=== PATIENT | female | born 1960 | race Caucasian/White ===

== ENCOUNTER → 2024-05-25 13:06 | Outpatient (REF) | payer OTHER, SELFPAY | LOC: HWWDC 13:06 | PROVIDERS: ATTENDING PHYSICIAN Internal Medicine | DX: Z12.31 Encounter for screening mammogram for malignant neoplasm of breast (principal) | CPT/HCPCS: 77063; 77067 ==

== ENCOUNTER → 2024-06-08 10:26 | Outpatient (REF) | payer OTHER, SELFPAY | LOC: WDC 10:26 | PROVIDERS: ATTENDING PHYSICIAN Internal Medicine | DX: R92.8 Other abnormal and inconclusive findings on diagnostic imaging of breast (principal) | CPT/HCPCS: 76642 ==

== ENCOUNTER → 2024-08-03 14:33 | Outpatient (REF) | payer OTHER, SELFPAY | LOC: DHSLP 14:33 | PROVIDERS: ATTENDING PHYSICIAN Nurse Practitioner Family | DX: G47.33 Obstructive sleep apnea (adult) (pediatric) (principal); R09.02 Hypoxemia | CPT/HCPCS: 95800 ==

== ENCOUNTER → 2024-12-12 14:22 | Outpatient (REF) | payer OTHER, SELFPAY | LOC: WDC 14:22 | PROVIDERS: ATTENDING PHYSICIAN Internal Medicine | DX: R92.8 Other abnormal and inconclusive findings on diagnostic imaging of breast (principal) | CPT/HCPCS: 76642 ==

== ENCOUNTER 2025-01-04 06:29 | Day surgery (SDC) | payer OTHER, SELFPAY ==
[2025-01-04] VITALS (9 sets, daily range): BP systolic 95–123; BP diastolic 37–75; BMI 45.9
[2025-01-04] MEDS: TYLENOL 1000 MG PO (11:11)
[2025-01-04] MEDS: NORMOSOL-R/PLASMALYTE-A 1000 IV (11:23)
[2025-01-04] MEDS: IC GREEN 2.5 MG IV (11:52)
--- NOTE | 2025-01-04 14:05 | W.SUR.PREOP ---
Pre-Operative Surgical Note
-
I have examined this patient prior to the performance of the scheduled procedure.
The patient's condition is unchanged from the time of the current History and
Physical and the patient is able to undergo the scheduled procedure.
--- NOTE | 2025-01-04 14:05 | HP.FOC2 ---
Focused History & Physical
Chief Complaint
HPI:
Chief Complaint: Right upper quadrant pain
HPI / Indication for Planned Procedure: This is a 64-year-old female who presents with symptomatic cholelithiasis. Will plan for a robotic cholecystectomy
Relevant Past Medical History: COPD or Pulmonary Disease and Other (Obesity (BMI 45))
Relevant Social History: Negative
Relevant Family History: Negative
Relevant Past Surgical History: Negative
Review of Systems
Review of Pertinent Systems: All Systems Negative
Medication
See Medication form for detailed medications: Yes
Medication List (including Herbals & OTC):
evolocumab 140 mg/mL subcutaneous pen injector (Repatha SureClick) 140 mg SC Q2W 12/29/24
flecainide 50 mg tablet 50 mg PO Q12H 12/29/24
lisinopril 20 mg tablet 20 mg PO HS 12/29/24
multivitamin 1 tab PO DAILY 12/29/24
sertraline 100 mg tablet (Zoloft) 50 mg PO HS 12/29/24
ziprasidone HCl 60 mg capsule (Geodon) 60 mg PO HS 12/29/24
Medications Reviewed: Yes
Allergies and Reactions
Patient has Allergies: No
Noted Allergies and Reactions:
Allergy/AdvReac Type Severity Reaction Status Date / Time
No Known Allergies Allergy Verified 01/04/25 11:04
Pertinent Physical Exam
All Other Systems: Negative
Head/Neck: Normal
Diagnosis / Assessment
This is a 64-year-old female who presents with symptomatic cholelithiasis. Will plan for a robotic cholecystectomy
Plan / Procedure
This is a 64-year-old female who presents with symptomatic cholelithiasis. Will plan for a robotic cholecystectomy
Anesthesia/Sedation to be done by Anesthesia Provider: Yes
--- NOTE | 2025-01-04 14:31 | PTCARENOTE ---
Report given to Nani NAVA
--- NOTE | 2025-01-04 14:32 | PTCARENOTE ---
Patient offered the bathroom and warm blankets several times while waiting to be taken to the OR. Patient was delayed and told about the delay from the MD. Patient aware. Will monitor.
--- NOTE | 2025-01-04 16:16 | W.IMMPOSTOP ---
Surgical Immed Post Op Note
-
Primary Surgeon: Randell Hernández MD
Assisting Surgeon: None
Pre-op Diagnosis: Symptomatic cholelithiasis
Post-op Diagnosis: Same
Procedure Performed: Robotic cholecystectomy
Anesthesia Type: General
Specimen / Cultures: Gallbladder and contents
Estimated Blood Loss: 3 cc
Complications: None
Operative Findings: Large distended chronically inflamed and fat encased gallbladder. The cystic artery was identified early and ligated high on the gallbladder with a single Weck clip. The cystic triangle and the lower third of the cystic plate
was dissected. The cystic duct was identified and ligated with 2 Weck clips. Firefly was used throughout the case. The gallbladder was removed through the midline incision without to significantly dilating the port site by manually plucking her
numerous gallstones through the specimen bag. This incision was closed with a 0 Maxon PDS suture.
POST OP PLAN:
Imaging: None
Labs: Routine AM
Diet: Advance to Regular as tolerated
Analgesia: Tylenol 650mg q6 Oscar, Toradol 10 mg every 6 as needed, tramadol 25 mg every 6 as needed as needed Dilaudid 0.5mg q2h PRN
Neuro/vascular checks: Per unit protocol
AC/AP: Hold Therapeutic AC, Ok for DVT PPx
Activity: Ad Tania
Wound/Incisions/Drains: Routine
Abx: None
Dispo: RNF. The patient is being admitted for postoperative pain. Anticipate discharge home tomorrow.
--- NOTE | 2025-01-04 16:20 | OR.RPT ---
Operative Report
Operative Report
Patient Name: Shari Lozano
: 1960
Date of Operation: 01/04/2025
Preoperative Diagnosis: Symptomatic Cholelithiasis
Postoperative Diagnosis: Same
Procedure(s):
Robotic Cholecystectomy
Surgeon(s):
Dr. Hernández
Steam Room Attendant(s):
Liza Brady NP
Anesthesia: General
Estimated Blood Loss: 3 cc
Urine Output: None
Drains/Lines/Implants: None
Specimens:
1. Gallbladder and contents
HPI/Surgical Indications:
This is a 64 year old female with history of morbid obesity who presented to my office with postprandial right upper quadrant abdominal pain. Exam, labs and imaging are consistent with symptomatic cholelithiasis. Risks/Benefits/Alternatives were
discussed at length, and the patient agreed to proceed with surgery.
Operative Findings: Large distended chronically inflamed and fat encased gallbladder. The cystic artery was identified early and ligated high on the gallbladder with a single Weck clip. The cystic triangle and the lower third of the cystic plate
was dissected. The cystic duct was identified and ligated with 2 Weck clips. Firefly was used throughout the case. The gallbladder was removed through the midline incision without to significantly dilating the port site by manually plucking her
numerous gallstones through the specimen bag. This incision was closed with a 0 Maxon PDS suture.
Procedure Description:
The patient was brought to the Operating Room and placed in the supine position with arms tucked. IV antibiotics were infused and sequential compression devices were confirmed to be on. Following uneventful induction of general endotracheal
anesthesia, an orogastric tube was placed. The abdomen was prepped and draped in the usual sterile fashion. The abdomen was entered using a Veress technique at Wisdom's point followed by a 8 mm trocar just above the umbilicus. Pneumoperitoneum to
15 mmHg pressure was obtained without difficulty and we confirmed that no injury had occurred during our entry. The patient was positioned in reverse trendelenberg and rotated with the right side up slightly. Three (3) 8mm trocars were then placed
along the abdomen transversely. The fundus of the gallbladder was elevated and the peritoneum overlying the triangle of Calot was incised. The gallbladder was distended and encased in fat. The cystic duct/gallbladder junction was identified,
dissected circumferentially. The cystic artery was identified medially and was dissected circumferentially. It was ligated high on the gallbladder with Weck clip on the patient's side and bipolar cautery on the gallbladder side. The cystic
triangle was dissected clear fat and the gallbladder was taken off the lower third of the cystic plate. The cystic duct was then divided using 2 Weck clips distally and 1 Weck clip on the specimen side. The remaining soft tissue attachments of
the gallbladder to the liver bed were then divided using electrocautery. There was no spillage of bile, or stones. The gallbladder bed was inspected and excellent hemostasis was obtained. The gallbladder was extracted through the 8 mm umbilical
trocar site using an endocatch bag. Care was taken to open up the specimen through the port and manually remove the numerous black gallstones that she had which allowed us to remove the gallbladder without dilating the port. The port was replaced
and excellent hemostasis was assured. All remaining trocars were then removed and the pneumoperitoneum was evacuated. The midline supraumbilical port was closed with 0 PDS. All trocar sites were closed at the skin level using 4-0 Monocryl
followed by Dermabond. Overall, the patient tolerated the procedure well and was taken to the Recovery Room postoperatively in stable condition.
Benny was the attending physician and performed the procedure with assistance of the FLYING TEACHER above. The assistance of Liza Brady NP was required due to the complexity of the procedure. During the procedure Norma assisted with port placement,
instrument exchanges, extraction of the specimen and closure of the wound. I was present for all portions of the case, excluding skin closure.
Randell Hernández MD
--- NOTE | 2025-01-04 18:00 | PTCARENOTE ---
Pt received from the PACU via bed. Transport was w/o incident. Pt is AAOx3, HR irreg (as per baseline), lungs are clear, resp. easy. Pulse ox is 93% on 4L at present. Pt instructed on importance of coughing and deep breathing. Pt also instructed on
plan of care. Pt verbalized understanding of instructions. Pt's abd with 4 lap sites and 1 poke site, all well approximated w/ surgi, no drainage noted. VSS, pt is afebrile. Call san is within reach.
[2025-01-04] MEDS: TAMBOCOR 50 MG PO (19:33)
[2025-01-04] MEDS: TYLENOL 650 MG PO ×2 (19:33→23:21)
[2025-01-04] MEDS: TORADOL 10 MG IV (19:33)
[2025-01-05] MEDS: GEODON 60 MG PO (00:06)
[2025-01-05] MEDS: ZOLOFT 50 MG PO (00:06)
[2025-01-05] MEDS: TORADOL 10 MG IV ×2 (01:27→09:29)
[2025-01-05 03:08] VITALS: BP 101/54
[2025-01-05] MEDS: TYLENOL PO (03:08)
[2025-01-05 07:13] LABS: Hematocrit 42.5 % (37.0-47.0); Hemoglobin 13.0 g/dL (12.0-16.0); Mean Corp Hgb Conc. 30.6 g/dL (33.0-37.0); Mean Corpuscular Volume 98.8 fL (81.0-99.0); Platelet Count 234 10^3/uL (130-400); Red Cell Dist. Width 12.9 % (11.5-14.5)
[2025-01-05 07:55] LABS: ALT (SGPT) 23 U/L (0-35); AST (SGOT) 21 U/L (14-36); Albumin 3.6 g/dl (3.5-5.0); Alkaline Phosphatase 62 U/L (38-126); Blood Urea Nitrogen 23 mg/dl (7-17); Calcium 9.2 mg/dl (8.4-10.2); Carbon Dioxide 28 mmol/L (22-30); Chloride 105 mmol/L (98-107); Estimated Creatinine Clearance 77 ml/min; Glucose 120 mg/dl (70-99); Potassium 4.7 mmol/L (3.5-5.1); Sodium 136 mmol/L (135-145); Total Protein 6.0 g/dl (6.3-8.2); eGFR > 60.00
[2025-01-05 08:05] VITALS: BP 127/71
--- NOTE | 2025-01-05 08:11 | W.PN.GS2 ---
Today's Communication / Plan
-
Discharge to home
Assessment / Plan
-
64 yo female presenting with symptomatic cholelithiasis now POD #1 RAL cholecystectomy
AFVSS
Tolerating diet
Minimal post op discomfort
Plan:
Continue diet
Analgesics as needed
OOB/Ambulate
Dispo planning
Subjective Data
-
Date of Service: January 05, 2025
Pt seen and examined at bedside with Dr. Lees. Denies n/v. Minimal if any abdominal discomfort. Ambulating in room.
Objective Data
-
Intake and Output
01/04/25 01/05/25 01/06/25
06:59 06:59 06:59
Intake Total 1200 / 1200
Balance 1200 / 1200
Intake:
Oral fluids 720 / 720
IV fluids (Total) 480 / 480
Other:
Number of approximated MODERATE 2
amounts of urine
Vital Signs
Temp Pulse Resp BP Pulse Ox
97.8 F 66 16 101/54 92
01/05/25 03:08 01/05/25 03:08 01/05/25 03:08 01/05/25 03:08 01/05/25 03:08
Lab Results
01/05/25 06:36
01/05/25 06:36
Calcium 9.2 mg/dl (8.4-10.2) 01/05/25 06:36
Total Bilirubin 0.4 mg/dl (0.2-1.3) 01/05/25 06:36
AST 21 U/L (14-36) 01/05/25 06:36
ALT 23 U/L (0-35) 01/05/25 06:36
Alkaline Phosphatase 62 U/L (38-126) 01/05/25 06:36
Total Protein 6.0 g/dl (6.3-8.2) L 01/05/25 06:36
Albumin 3.6 g/dl (3.5-5.0) 01/05/25 06:36
Physical Exam
-
NAD
ABD soft, nd, nt
Incisions with intact glue, well approximated and no erythema
--- NOTE | 2025-01-05 08:26 | W.DS.TRANS ---
DC Summary - Pipe Crew Foreman
-
Discharge Instructions:
Discharge Diagnosis/Procedures Biliary colic. Robotic cholecystectomy
Diet No restrictions
Activity No strenuous activity
Driving Restrictions As prior to admission
Bathing Restrictions OK to Shower
Instructions:
Stand-Alone Forms:
Changes to Home Medications: No
Discharge Medications:
DC Medications w/original date entered in [facility]
evolocumab 140 mg/mL subcutaneous pen injector (Repatha SureClick) 140 mg SC Q2W 12/29/24
flecainide 50 mg tablet 50 mg PO Q12H 12/29/24
lisinopril 20 mg tablet 20 mg PO HS 12/29/24
multivitamin 1 tab PO DAILY 12/29/24
sertraline 100 mg tablet (Zoloft) 50 mg PO HS 12/29/24
ziprasidone HCl 60 mg capsule (Geodon) 60 mg PO HS 12/29/24
acetaminophen 325 mg tablet 650 mg (2 x 325 mg) PO Q6HPRN PRN mild pain #14 tabs 01/04/25
ibuprofen 600 mg tablet 600 mg PO Q6H PRN pain #14 tabs 01/04/25
tramadol 50 mg tablet 25 mg (1/2 x 50 mg) PO Q6HPRN PRN severe pain/breakthrough pain #12 tabs 01/04/25
Home Medication Changes
Pending Results: No
--- NOTE | 2025-01-05 09:24 | CM ---
CM reviewed medical records. Plan for discharge to home with cousin.
Patient denies history of VN, SNF. Patient has a CPAP from [facility].
PLAN: home no needs.
[2025-01-05] MEDS: TAMBOCOR 50 MG PO (09:29)
[2025-01-05] MEDS: TYLENOL 650 MG PO ×2 (09:29→12:14)
[2025-01-05] MEDS: THERAGRAN 1 TABLET PO (09:29)
[2025-01-05 11:03] VITALS: BP 143/67
[2025-01-05] MEDS: FLUZONE (6 mos+) 2025-2026 FORMULA 0.5 ML IM (12:24)
== END 2025-01-05 12:56 | disposition home or self-care (01) ==
LOC: SDS 06:29
PROVIDERS: ATTENDING PHYSICIAN Surgery
DX: K80.10 Calculus of gallbladder with chronic cholecystitis without obstruction (principal); K80.20 Calculus of gallbladder without cholecystitis without obstruction; R10.11 Right upper quadrant pain
CPT/HCPCS: 47562; 80053; 85027; 88304; 90656; G0008